=== PATIENT | male | born 1960 | race Caucasian/White ===

== ENCOUNTER 2022-02-04 09:22 | Outpatient (CLI) | payer OTHER, SELFPAY ==
[2022-02-04 14:23] LABS: Free T4 Free Thyroxine* 1.33 ng/dL (0.70-1.85)
== END 2022-02-04 09:23 | disposition home or self-care (01) ==
PROVIDERS: Visit Provider Family Medicine
DX: E03.9 Hypothyroidism, unspecified (principal)
CPT/HCPCS: 84439; 84443

== ENCOUNTER 2022-12-19 08:59 | Outpatient (CLI) | payer OTHER, SELFPAY ==
[2022-12-19 14:36] LABS: Free T4 Free Thyroxine* 1.17 ng/dL (0.70-1.85)
== END 2022-12-19 09:00 | disposition home or self-care (01) ==
PROVIDERS: PCP Family Medicine; Visit Provider Family Medicine
DX: Z13.228 Encounter for screening for other metabolic disorders (principal); Z13.220 Encounter for screening for lipoid disorders; E03.8 Other specified hypothyroidism
CPT/HCPCS: 80053; 80061; 84439; 84443

== ENCOUNTER 2024-03-11 07:39 | Outpatient (CLI) | payer OTHER, SELFPAY | END 2024-03-11 07:40 | disposition home or self-care (01) | LOC: NFLDREF 03-15 14:19 | PROVIDERS: PCP Family Medicine; Referring Provider Family Medicine; Visit Provider Family Medicine | DX: R73.03 Prediabetes (principal); I10 Essential (primary) hypertension; E06.3 Autoimmune thyroiditis; Z11.59 Encounter for screening for other viral diseases; Z12.5 Encounter for screening for malignant neoplasm of prostate; Z13.220 Encounter for screening for lipoid disorders | CPT/HCPCS: 80053; 80061; 82043; 82570; 84439; 84443; 86803; G0103 ==